=== PATIENT | male | born 1950 | race Caucasian/White ===

== ENCOUNTER 2018-11-15 07:23 | Observation (INO) ==
[2018-11-15] MEDS ORDERED: *HR* Morphine 2 MG/ML SYRINGE IVP ONE ×4 (07:43→18:02)
[2018-11-15] MEDS ORDERED: 0.9 % Sodium Chloride 1,000 ML IVC ONE ×2 (07:43→16:26)
[2018-11-15] MEDS ORDERED: Ondansetron 4 MG/2 ML VIAL IVP ONE ×2 (07:43→09:10)
[2018-11-15 08:04] LABS: Basophils # 0.1 K/mcL (0.0-0.2); Basophils % 0.3 %; Eosinophils % 0.2 %; Hemoglobin 18.9 g/dL (12.9-16.9); Immature Granulocytes % 0.5 % (0-4); Lymphocytes # 0.9 K/mcL (0.6-4.6); Lymphocytes % 5.8 %; Mean Corpuscular HGB Conc 33.4 g/dL (31.6-35.5); Mean Corpuscular Hemoglobin 32.1 pg (28.0-33.3); Mean Corpuscular Volume 96.3 fL (83.0-100.0); Monocytes # 1.2 K/mcL (0.0-1.3); Monocytes % 8.3 %; Neutrophils # 12.7 K/mcL (1.6-8.9); Platelet Count 317 K/mcL (140-400); Red Blood Count 5.88 M/mcL (4.19-5.50); Segmented Neutrophils % 84.9 %; White Blood Count 14.9 K/mcL (4.3-11.1)
--- NOTE | 2018-11-15 08:08 | Emergency Department Note ---
Disposition Clinical Impression: Ileus Abdominal pain Qualifiers: Abdominal location: right upper quadrant Qualified Code(s): R10.11 - Right upper quadrant pain Disposition: Still a Patient Condition: Fair Referrals: Tomas Kumar DO [Primary Care Provider] - Forms: ED Satisfaction Letter, Work/School Release Time of Disposition: 16:45 General Adult HPI - General Chief complaint: ED Abdominal Pain Stated complaint: ABD Pain,Vomiting Blood Time Seen by Provider: 11/15/18 07:29 Source: patient Limitations: no limitations Nursing Notes Reviewed: Yes Vital Signs Reviewed: Yes - History of Present Illness Pain Scale: 3 - Related Data Home Medications Medication Instructions Recorded Confirmed Carvedilol 3.125 mg PO BID 04/15/17 11/15/18 Lisinopril [Zestril] 20 mg PO QPM 04/15/17 11/15/18 Pantoprazole Sodium 40 mg PO QPM 04/15/17 11/15/18 Simvastatin [Zocor] 40 mg PO HS 04/15/17 11/15/18 Aspirin [Lo-Dose Aspirin EC] 81 mg PO DAILY 05/01/17 11/15/18 Sildenafil Citrate [Revatio] 60 - 100 mg PO DAILY PRN 05/17/17 11/15/18 Ascorbate Calcium [Vitamin C] 500 mg PO DAILY 11/06/18 11/15/18 Cholecalciferol (Vitamin D3) 5,000 units PO DAILY 11/06/18 11/15/18 [Dialyvite Vitamin D] Ferrous Sulfate [High Potency Iron] 27 mg PO QPM 11/06/18 11/15/18 Allergies Allergy/AdvReac Type Severity Reaction Status Date / Time Penicillins [PCN] AdvReac See Verified 11/15/18 07:28 Comments Past Medical History - Past Medical History Medical history: Reports: cancer, COPD, GERD, hyperlipidemia, hypertension, kidney stones, myocardial infarction, other Surgical history: Reports: herniorrhaphy Psychiatric history: Reports: no psych history - Social History Smoking Status: Current every day smoker Smokeless Tobacco Status: No Alcohol use: Reports: none Drug use: Reports: none Physical Exam - General Limitations: no limitations General appearance: alert, in no apparent distress Course Vital Signs Temperature 97.5 F L 11/15/18 07:27 Pulse Rate 113 11/15/18 07:27 Respiratory Rate 18 11/15/18 07:27 Blood Pressure 149/100 11/15/18 07:27 O2 Sat by Pulse Oximetry 93 11/15/18 07:27 Temperature 97.5 F L 11/15/18 07:45 Pulse Rate 92 11/15/18 14:56 Respiratory Rate 16 11/15/18 14:56 Blood Pressure 120/95 11/15/18 14:56 O2 Sat by Pulse Oximetry 95 11/15/18 14:56 Oxygen Delivery Oxygen Delivery Nasal Cannula Medical Decision Making - MDM Narrative Medical decision making narrative: Abdomen/Pelvis CT 11/15/18 07:45 IMPRESSION: Moderate abdominal and pelvic ascites in this patient with recent cholecystectomy. Small amount of fluid at the gallbladder fossa as well. The findings could be reactive, related to fluid overload, or bile leak. Nuclear medicine bile leak study may be helpful for further assessment. Gaseous distention of colon, likely postoperative ileus. Prostatomegaly. Correlate with urologic history. Atherosclerosis, including coronary artery calcification. No significant interval change in right basilar pulmonary nodules as compared to prior. D/ / Thanh Ram MD / Thanh Ram MD Interpreting Provider: Thanh Ram MD [id number]: Patient labs are back with leukocytosis and elevated bilirubin. He has had pain and nausea medication CT is back. Were going to speak with surgery. For evaluation. 0910 hours: Patient's discussed with surgery Dr. Sosa coming to see him. Patient says pain is coming back prescription ordered another dose of pain medications and nausea medications. 1038 hrs.: Dr. Sosa seen the patient in the ER, he is going to see if I are can place a pigtail and drain this fluid collection out which she presumes may be blood. Patient's in agreement with this plan. 1600 hrs.: Patient got back from IR, they thought the fluid looked bilious we sent it down to lab. Patient still having pain. We will talk to Dr. Marks and he is in a come down and reevaluate the patient. Determine best disposition for him. I am signing this patient out to Dr. Teo Prealta and Shelby Major for further management disposition. - Lab Data Result diagrams: 11/15/18 07:43 11/15/18 07:43 Lab Results 11/15/18 11/15/18 11/15/18 Range/Units 07:43 07:43 07:46 WBC 14.9 H (4.3-11.1) K/mcL RBC 5.88 H (4.19-5.50) M/mcL Hgb 18.9 H (12.9-16.9) g/dL Hct 56.6 H (37.5-50.1) % MCV 96.3 (83.0-100.0) fL MCH 32.1 (28.0-33.3) pg MCHC 33.4 (31.6-35.5) g/dL RDW 14.0 (11.5-14.5) % Plt Count 317 (140-400) K/mcL MPV 10.0 (9.4-12.4) fL Immature Gran % 0.5 (0-4) % Seg Neutrophils % 84.9 % Lymphocytes % 5.8 % Monocytes % 8.3 % Eosinophils % 0.2 % Basophils % 0.3 % Neutrophils # 12.7 H (1.6-8.9) K/mcL Lymphocytes # 0.9 (0.6-4.6) K/mcL Monocytes # 1.2 (0.0-1.3) K/mcL Eosinophils # 0.0 (0.0-0.6) K/mcL Basophils # 0.1 (0.0-0.2) K/mcL PT (9.4-12.1) Seconds INR APTT (26.0-36.0) Seconds Sodium 137 (136-145) mEq/L Potassium 4.5 (3.5-5.1) mEq/L Chloride 97 L (98-107) mEq/L Carbon Dioxide 29 (23-29) mEq/L BUN 16 (8-23) mg/dL Creatinine 1.17 (0.70-1.30) mg/dL Est GFR ( Amer) > 60 (> 60) Est GFR (Non-Af Amer) > 60 (> 60) BUN/Creatinine Ratio 14 (6-26) Glucose 171 H (70-105) mg/dL Calculated Osmolality 289 (280-300) Lactic Acid 2.1 (0.5-2.2) mmol/L Calcium 12.7 H (8.6-10.3) mg/dL Venous Ioniz Calcium (1.15-1.35) mmol/L Total Bilirubin 1.7 H (0.3-1.0) mg/dL Direct Bilirubin 0.5 H (0.0-0.2) mg/dL Indirect Bilirubin 1.2 (0.0-1.2) mg/dL AST 27 (13-39) Units/L ALT 52 (7-52) Units/L Alkaline Phosphatase 71 (34-104) Units/L Troponin I < 0.03 (< 0.04) ng/mL B-Natriuretic Peptide (Less than 100) pg/mL Serum Total Protein 8.1 (6.4-8.9) g/dL Albumin 4.4 (3.5-5.7) g/dL Globulin 3.7 H (2.4-3.5) g/dL Albumin/Globulin Ratio 1.2 (1.1-2.2) Lipase < 3 L (11-82) Units/L Specimen Rejected Blood Type Antibody Screen 11/15/18 11/15/18 11/15/18 Range/Units 07:46 07:46 07:46 WBC (4.3-11.1) K/mcL RBC (4.19-5.50) M/mcL Hgb (12.9-16.9) g/dL Hct (37.5-50.1) % MCV (83.0-100.0) fL MCH (28.0-33.3) pg MCHC (31.6-35.5) g/dL RDW (11.5-14.5) % Plt Count (140-400) K/mcL MPV (9.4-12.4) fL Immature Gran % (0-4) % Seg Neutrophils % % Lymphocytes % % Monocytes % % Eosinophils % % Basophils % % Neutrophils # (1.6-8.9) K/mcL Lymphocytes # (0.6-4.6) K/mcL Monocytes # (0.0-1.3) K/mcL Eosinophils # (0.0-0.6) K/mcL Basophils # (0.0-0.2) K/mcL PT (9.4-12.1) Seconds INR APTT (26.0-36.0) Seconds Sodium (136-145) mEq/L Potassium (3.5-5.1) mEq/L Chloride (98-107) mEq/L Carbon Dioxide (23-29) mEq/L BUN (8-23) mg/dL Creatinine (0.70-1.30) mg/dL Est GFR ( Amer) (> 60) Est GFR (Non-Af Amer) (> 60) BUN/Creatinine Ratio (6-26) Glucose (70-105) mg/dL Calculated Osmolality (280-300) Lactic Acid (0.5-2.2) mmol/L Calcium (8.6-10.3) mg/dL Venous Ioniz Calcium (1.15-1.35) mmol/L Total Bilirubin (0.3-1.0) mg/dL Direct Bilirubin (0.0-0.2) mg/dL Indirect Bilirubin (0.0-1.2) mg/dL AST (13-39) Units/L ALT (7-52) Units/L Alkaline Phosphatase (34-104) Units/L Troponin I (< 0.04) ng/mL B-Natriuretic Peptide 242 H (Less than 100) pg/mL Serum Total Protein (6.4-8.9) g/dL Albumin (3.5-5.7) g/dL Globulin (2.4-3.5) g/dL Albumin/Globulin Ratio (1.1-2.2) Lipase (11-82) Units/L Specimen Rejected Miscellaneous Blood Type A POSITIVE Antibody Screen NEGATIVE 11/15/18 11/15/18 11/15/18 Range/Units 08:51 11:42 12:25 WBC (4.3-11.1) K/mcL RBC (4.19-5.50) M/mcL Hgb (12.9-16.9) g/dL Hct (37.5-50.1) % MCV (83.0-100.0) fL MCH (28.0-33.3) pg MCHC (31.6-35.5) g/dL RDW (11.5-14.5) % Plt Count (140-400) K/mcL MPV (9.4-12.4) fL Immature Gran % (0-4) % Seg Neutrophils % % Lymphocytes % % Monocytes % % Eosinophils % % Basophils % % Neutrophils # (1.6-8.9) K/mcL Lymphocytes # (0.6-4.6) K/mcL Monocytes # (0.0-1.3) K/mcL Eosinophils # (0.0-0.6) K/mcL Basophils # (0.0-0.2) K/mcL PT 12.2 H (9.4-12.1) Seconds INR 1.1 APTT 31.2 (26.0-36.0) Seconds Sodium (136-145) mEq/L Potassium (3.5-5.1) mEq/L Chloride (98-107) mEq/L Carbon Dioxide (23-29) mEq/L BUN (8-23) mg/dL Creatinine (0.70-1.30) mg/dL Est GFR ( Amer) (> 60) Est GFR (Non-Af Amer) (> 60) BUN/Creatinine Ratio (6-26) Glucose (70-105) mg/dL Calculated Osmolality (280-300) Lactic Acid 1.0 (0.5-2.2) mmol/L Calcium (8.6-10.3) mg/dL Venous Ioniz Calcium 1.30 (1.15-1.35) mmol/L Total Bilirubin (0.3-1.0) mg/dL Direct Bilirubin (0.0-0.2) mg/dL Indirect Bilirubin (0.0-1.2) mg/dL AST (13-39) Units/L ALT (7-52) Units/L Alkaline Phosphatase (34-104) Units/L Troponin I (< 0.04) ng/mL B-Natriuretic Peptide (Less than 100) pg/mL Serum Total Protein (6.4-8.9) g/dL Albumin (3.5-5.7) g/dL Globulin (2.4-3.5) g/dL Albumin/Globulin Ratio (1.1-2.2) Lipase (11-82) Units/L Specimen Rejected Blood Type Antibody Screen Attestation Statement - Attestation Attestation: This documentation is done with the assistance of [employer] dictation. Despite efforts made to ensure accuracy, there may be inaccuracies in drywall worker or spelling and typographical errors. I have personally performed a face to face evaluation on this patient. I have reviewed and agree with the care plan. History and Exam by me shows: Patient was seen and evaluated by Shelby Major myself, I agree with her evaluation management plan, patient had surgery laparoscopic cholecystectomy done on the november here. Been having epigastric and right upper quadrant pain no back pain. He sits worse when he coughs or moves. He has been taken ibuprofen at home. He said he does not like to take narcotic pain medicines. He is on been coughing up some blood. He said this morning he vomited he thinks it was blood but he said he is a little nauseous now but no vomiting. We will treat his pain check some labwork CT his abdomen and then reassess. He is in agreement with plan. We will consult with surgery also. I reviewed the residents documentation and agree with the residents assessment and plan of care. I have personally had face to face time with the patient. (Brief History, Brief Exam, and MDM) I personally supervised and was present for the fallon/critical portions of the following procedures completed by the resident: EKG was reviewed and interpreted by Shelby Major under my supervision, I agree with her interpretation.
[2018-11-15 08:09] LABS: Hematocrit 56.6 % (37.5-50.1)
[2018-11-15 08:26] LABS: Alanine Aminotransferase 52 Units/L (7-52); Albumin 4.4 g/dL (3.5-5.7); Albumin/Globulin Ratio 1.2 (1.1-2.2); Alkaline Phosphatase 71 Units/L (34-104); Aspartate Amino Transferase 27 Units/L (13-39); BUN/Creatinine Ratio 14 (6-26); Bilirubin,Direct 0.5 mg/dL (0.0-0.2); Bilirubin,Indirect 1.2 mg/dL (0.0-1.2); Bilirubin,Total 1.7 mg/dL (0.3-1.0); Blood Urea Nitrogen 16 mg/dL (8-23); Calcium 12.7 mg/dL (8.6-10.3); Carbon Dioxide 29 mEq/L (23-29); Chloride 97 mEq/L (98-107); Globulin 3.7 g/dL (2.4-3.5); Glucose 171 mg/dL (70-105); Lipase < 3 Units/L (11-82); Osmolality,Calculated 289 (280-300); Potassium 4.5 mEq/L (3.5-5.1); Sodium 137 mEq/L (136-145); Total Protein 8.1 g/dL (6.4-8.9); Troponin I < 0.03 ng/mL (< 0.04); eGFR For African Americans > 60 (> 60); eGFR For Non-African Americans > 60 (> 60)
--- NOTE | 2018-11-15 08:45 | Emergency Department Note ---
Disposition Clinical Impression: Ileus Abdominal pain Qualifiers: Abdominal location: right upper quadrant Qualified Code(s): R10.11 - Right upper quadrant pain Disposition: Still a Patient Condition: Fair Referrals: Tomas Kumar DO [Primary Care Provider] - Forms: ED Satisfaction Letter, Work/School Release Time of Disposition: 18:10 Abdominal Pain HPI - General Chief Complaint: ED Abdominal Pain Stated Complaint: ABD Pain,Vomiting Blood Time Seen by Provider: 11/15/18 07:29 Source: patient Mode of arrival: private vehicle Limitations: no limitations Nursing Notes Reviewed: Yes Vital Signs Reviewed: Yes - History of Present Illness HPI Narrative: Patient presents from home for evaluation of epigastric abdominal pain with nausea and vomiting. He had one episode of hematemesis this morning. He also describes anorexia, constipation 3 days and diaphoresis. He is nine days status post laparoscopic cholecystectomy. The pain is worse with certain movements, vomiting, and trying to eat. He has not had any food for 36 hours. He tried to drink a soda yesterday, but states that it took them all day to drink one can. He denies fever or chills, chest pain, shortness of breath or hemoptysis. He also denies flank pain, dysuria, hematuria. He has been taking ibuprofen for his postoperative pain. Pt Subjective Complaint: abdominal pain, other (hematemesis) Onset (ago): day(s) Consistency: constant Location: epigastric Pain Severity: moderate Pain Scale: 3 Quality: stabbing, sharp Radiation: RUQ Improves with: nothing Worsens with: movement Context: recent surgery/procedure (Lap Chen 11/06/18) Associated symptoms: Reports: nausea, vomiting (One episode of hematemesis. Just prior to arrival. Patient describes it as small amount of clear fluid and some bright red blood. No blood clots.), constipation (No bowel movement 3 days. Has had two-three normal bowel movements since surgery though.), hematemesis, anorexia (Last oral intake was Sunday evening for cellulitis and yesterday evening for liquids.). Denies: diarrhea, fever, chills, dysuria, hematochezia, melena, hematuria Treatments prior to arrival: NSAIDs (Patient states that he took four ibuprofen yesterday evening and has been taking ibuprofen since surgery as he does not like to take narcotics. ) - Related Data Home Medications Medication Instructions Recorded Confirmed Carvedilol 3.125 mg PO BID 04/15/17 11/15/18 Lisinopril [Zestril] 20 mg PO QPM 04/15/17 11/15/18 Pantoprazole Sodium 40 mg PO QPM 04/15/17 11/15/18 Simvastatin [Zocor] 40 mg PO HS 04/15/17 11/15/18 Aspirin [Lo-Dose Aspirin EC] 81 mg PO DAILY 05/01/17 11/15/18 Sildenafil Citrate [Revatio] 60 - 100 mg PO DAILY PRN 05/17/17 11/15/18 Ascorbate Calcium [Vitamin C] 500 mg PO DAILY 11/06/18 11/15/18 Cholecalciferol (Vitamin D3) 5,000 units PO DAILY 11/06/18 11/15/18 [Dialyvite Vitamin D] Ferrous Sulfate [High Potency Iron] 27 mg PO QPM 11/06/18 11/15/18 Allergies Allergy/AdvReac Type Severity Reaction Status Date / Time Penicillins [PCN] AdvReac See Verified 11/15/18 07:28 Comments Abdominal Pain PMH - Past Medical History Medical history: Reports: cancer, COPD, GERD, hyperlipidemia, hypertension, kidney stones, myocardial infarction, other Male Surgical History: Reports: cholecystectomy, colectomy, herniorrhaphy, other Psychiatric history: Reports: no psych history - Social History Smoking status: Current every day smoker Alcohol use: Reports: none Drug use: Reports: none Physical Exam - General Limitations: no limitations General appearance: alert, in no apparent distress, other (appears in pain) - Head Head exam: atraumatic, normocephalic, normal inspection - Eye Eye exam: Present: normal appearance. Absent: scleral icterus, conjunctival injection - ENT ENT exam: mucous membranes dry - Neck Neck exam: Present: normal inspection, full ROM, trachea midline. Absent: meningismus - Expanded Neck Exam Neck exam focused ED: Absent: JVD - Chest Chest inspection: Present: symmetric chest wall rise, other (Well-healing surgical wound, left upper chest wall from recent removal of port. ("Dart Board" per patient)). Absent: tenderness - Respiratory Respiratory exam: Present: normal lung sounds bilaterally. Absent: respiratory distress, wheezes, stridor - Cardiovascular Cardiovascular exam: Present: regular rate (98-113), tachycardia (98-113), irregular rhythm. Absent: systolic murmur, diastolic murmur - Abdominal Exam Abdominal exam: Present: soft, tenderness, hypoactive bowel sounds, incision (Well healing surgical wounds lower abdomen and right lateral), scar. Absent: distention, guarding, rebound, rigidity, tenderness at McBurney's Point, ascites, mass, pulsatile mass Abdominal tenderness: Present: RUQ, epigastrium, moderate - Extremities Exam Extremities exam: Present: normal inspection, full ROM, normal capillary refill. Absent: pedal edema, calf tenderness - Back Exam Back exam: Present: normal inspection. Absent: tenderness, CVA tenderness (R), CVA tenderness (L) - Neurological Exam Neurological exam: Present: alert, oriented X3, CN II-XII intact, normal gait - Psychiatric Psychiatric exam: Present: normal affect, normal mood - Skin Skin exam: Present: warm, dry, intact, normal color Course Course Narrative: Patient brought back to room 23. He appears to be in pain, but non-toxic. He is able to provide a thorough history. Abdomen is tender but no signs of peritonitis. Lungs are clear. Heart rate is 90's-110. Rhythm is irregular but sinus. (Patient states that he has a hx of sinus arrythmia x decades. He also has had stomach and esophageal cancer, s/p partial resection of both 6 years ago in [place]. In remission.) He describes one episode of hematemesis today - just [employer]. He has had no vomiting during his stay. Pain was moderate and responded to Morphine. Labs, EKG, CT and fluids ordered. - Reevaluation(s) Reevaluation #1: Patient is feeling worse. The pain medicine helped transiently. However, when he came back from CAT scan, the pain returned. He states that he did get up and transfer onto the CAT scan table and then back onto the cot after the scan. He believes this is what made his pain worse. Additional meds have been ordered. Heart rate is between 98 and 113. Blood pressure is higher than when he arrived. Dr. Solitario updated. Time: 09:12 Reevaluation #2: Pain is much better after meds. No nausea or vomiting. Heart rate still 1-teens though. Sats decrease to 88 on room air when he is sleeping. Added O2 at 1.5 liters via nasal cannula. Time: 10:06 Reevaluation #3: Pain has returned. Discussed this with Dr. Solitario. He tapan's giving patient another 8mg of Morphine. Vitals being re-checked now. Patient is waiting to go to IR dept for aspiration per Dr. Marks. Time: 11:37 Additional Reevaluation(s): Time is 16:[address]-guided fluid aspiration from the right upper quadrant done by IR physician, Dr. Prince. I was able to watch the procedure. When the abdomen was punctured. There was evacuation of approximately 20 mL of yellow fluid onto the drape. When the introducer was inserted there was another gush of yellow fluid. Additional fluid was aspirated and has been sent for lab. Dr. Prince placed to drain and states that it should remain in. He recommends contacting the surgeon for specific lab orders on the abdominal fluid. Dr. Marks has been paged. Patient c/o increased pain. Meds ordered. PEREZ drain emptyied and is 3/4 full now. - Consultations Consultation #1: Case discussed with Dr. Marks. He will come to the ED to see the patient. Time: 08:52 Consultation #2: Pt examined by Dr. Marks. He does not think patient has a bile leak. He will talk with IR about doing an aspiration to determine the type of fluid, then discuss disposition. Time: 10:45 Consultation #3: Dr. Marks has been paged for consult re: disposition. Patient will most likely need to be admitted for further evaluation of the fluid as well as treatment of the pain and ileus. Time: 15:45 Vital Signs Temperature 97.5 F L 11/15/18 07:27 Pulse Rate 113 11/15/18 07:27 Respiratory Rate 18 11/15/18 07:27 Blood Pressure 149/100 11/15/18 07:27 O2 Sat by Pulse Oximetry 93 11/15/18 07:27 Temperature 97.5 F L 11/15/18 07:45 Pulse Rate 82 11/15/18 18:39 Respiratory Rate 18 11/15/18 18:39 Blood Pressure 144/93 11/15/18 18:39 O2 Sat by Pulse Oximetry 97 11/15/18 18:39 Oxygen Delivery Oxygen Delivery Room Air Abdominal Pain - MDM Narrative Medical decision making narrative: Patient's abdominal pain, N/V & leukocytosis most likely second to acute abdominal process. He does have an occasional cough and hilar but this most- likely represents atelectasis per radiologist. - Medical Records Medical records reviewed: Yes I reviewed the patient's medical records. - Lab Data Lab results reviewed: Yes I reviewed the patient's lab results. Lab results narrative: Laboratory Last Values WBC 14.9 K/mcL (4.3-11.1) H 11/15/18 07:43 RBC 5.88 M/mcL (4.19-5.50) H 11/15/18 07:43 Hgb 18.9 g/dL (12.9-16.9) H 11/15/18 07:43 Hct 56.6 % (37.5-50.1) H 11/15/18 07:43 MCV 96.3 fL (83.0-100.0) 11/15/18 07:43 MCH 32.1 pg (28.0-33.3) 11/15/18 07:43 MCHC 33.4 g/dL (31.6-35.5) 11/15/18 07:43 RDW 14.0 % (11.5-14.5) 11/15/18 07:43 Plt Count 317 K/mcL (140-400) 11/15/18 07:43 MPV 10.0 fL (9.4-12.4) 11/15/18 07:43 Immature Gran % 0.5 % (0-4) 11/15/18 07:43 Seg Neutrophils % 84.9 % 11/15/18 07:43 5.8 % 11/15/18 07:43 8.3 % 11/15/18 07:43 0.2 % 11/15/18 07:43 0.3 % 11/15/18 07:43 12.7 K/mcL (1.6-8.9) H 11/15/18 07:43 0.9 K/mcL (0.6-4.6) 11/15/18 07:43 1.2 K/mcL (0.0-1.3) 11/15/18 07:43 0.0 K/mcL (0.0-0.6) 11/15/18 07:43 0.1 K/mcL (0.0-0.2) 11/15/18 07:43 PT 12.2 Seconds (9.4-12.1) H 11/15/18 08:51 INR 1.1 11/15/18 08:51 APTT 31.2 Seconds (26.0-36.0) 11/15/18 08:51 Sodium 137 mEq/L (136-145) 11/15/18 07:43 Potassium 4.5 mEq/L (3.5-5.1) 11/15/18 07:43 Chloride 97 mEq/L (98-107) L 11/15/18 07:43 Carbon Dioxide 29 mEq/L (23-29) 11/15/18 07:43 BUN 16 mg/dL (8-23) 11/15/18 07:43 1.17 mg/dL (0.70-1.30) 11/15/18 07:43 Est GFR ( Amer) > 60 (> 60) 11/15/18 07:43 Est GFR (Non-Af Amer) > 60 (> 60) 11/15/18 07:43 14 (6-26) 11/15/18 07:43 Glucose 171 mg/dL (70-105) H 11/15/18 07:43 289 (280-300) 11/15/18 07:43 Lactic Acid 1.0 mmol/L (0.5-2.2) 11/15/18 11:42 Calcium 12.7 mg/dL (8.6-10.3) H 11/15/18 07:43 1.7 mg/dL (0.3-1.0) H 11/15/18 07:43 0.5 mg/dL (0.0-0.2) H 11/15/18 07:43 1.2 mg/dL (0.0-1.2) 11/15/18 07:43 AST 27 Units/L (13-39) 11/15/18 07:43 ALT 52 Units/L (7-52) 11/15/18 07:43 71 Units/L (34-104) 11/15/18 07:43 < 0.03 ng/mL (< 0.04) 11/15/18 07:43 B-Natriuretic Peptide 242 pg/mL (Less than 100) H 11/15/18 07:46 8.1 g/dL (6.4-8.9) 11/15/18 07:43 4.4 g/dL (3.5-5.7) 11/15/18 07:43 3.7 g/dL (2.4-3.5) H 11/15/18 07:43 1.2 (1.1-2.2) 11/15/18 07:43 < 3 Units/L (11-82) L 11/15/18 07:43 Miscellaneous 11/15/18 07:46 Blood Type A POSITIVE 11/15/18 07:46 Antibody Screen NEGATIVE 11/15/18 07:46 Result diagrams: 11/15/18 07:43 11/15/18 07:43 Lab Results 11/15/18 11/15/18 11/15/18 Range/Units 07:43 07:43 07:46 WBC 14.9 H (4.3-11.1) K/mcL RBC 5.88 H (4.19-5.50) M/mcL Hgb 18.9 H (12.9-16.9) g/dL Hct 56.6 H (37.5-50.1) % MCV 96.3 (83.0-100.0) fL MCH 32.1 (28.0-33.3) pg MCHC 33.4 (31.6-35.5) g/dL RDW 14.0 (11.5-14.5) % Plt Count 317 (140-400) K/mcL MPV 10.0 (9.4-12.4) fL Immature Gran % 0.5 (0-4) % Seg Neutrophils % 84.9 % Lymphocytes % 5.8 % Monocytes % 8.3 % Eosinophils % 0.2 % Basophils % 0.3 % Neutrophils # 12.7 H (1.6-8.9) K/mcL Lymphocytes # 0.9 (0.6-4.6) K/mcL Monocytes # 1.2 (0.0-1.3) K/mcL Eosinophils # 0.0 (0.0-0.6) K/mcL Basophils # 0.1 (0.0-0.2) K/mcL PT (9.4-12.1) Seconds INR APTT (26.0-36.0) Seconds Sodium 137 (136-145) mEq/L Potassium 4.5 (3.5-5.1) mEq/L Chloride 97 L (98-107) mEq/L Carbon Dioxide 29 (23-29) mEq/L BUN 16 (8-23) mg/dL Creatinine 1.17 (0.70-1.30) mg/dL Est GFR ( Amer) > 60 (> 60) Est GFR (Non-Af Amer) > 60 (> 60) BUN/Creatinine Ratio 14 (6-26) Glucose 171 H (70-105) mg/dL Calculated Osmolality 289 (280-300) Lactic Acid 2.1 (0.5-2.2) mmol/L Calcium 12.7 H (8.6-10.3) mg/dL Venous Ioniz Calcium (1.15-1.35) mmol/L Total Bilirubin 1.7 H (0.3-1.0) mg/dL Direct Bilirubin 0.5 H (0.0-0.2) mg/dL Indirect Bilirubin 1.2 (0.0-1.2) mg/dL AST 27 (13-39) Units/L ALT 52 (7-52) Units/L Alkaline Phosphatase 71 (34-104) Units/L Troponin I < 0.03 (< 0.04) ng/mL B-Natriuretic Peptide (Less than 100) pg/mL Serum Total Protein 8.1 (6.4-8.9) g/dL Albumin 4.4 (3.5-5.7) g/dL Globulin 3.7 H (2.4-3.5) g/dL Albumin/Globulin Ratio 1.2 (1.1-2.2) Lipase < 3 L (11-82) Units/L Urine Color (Yellow) Urine Clarity (Clear) Urine pH (5.0-8.0) pH Units Ur Specific Merrick (1.010-1.025) Urine Protein (Neg-Trace) mg/dL Urine Glucose (UA) (Normal) mg/dL Urine Ketones (Negative) mg/dL Urine Blood (Negative) Urine Nitrite (Negative) Urine Bilirubin (Negative) Urine Urobilinogen (Normal) mg/dL Ur Leukocyte Esterase (Negative) Urine Microscopic RBC (0-3) per hpf Urine Microscopic WBC (0-3) per hpf Ur Squamous Epith Cells (None-Few) per lpf Urine Bacteria (None-Few) per hpf Ur Culture Indicated? (NO) Specimen Rejected Blood Type Antibody Screen 11/15/18 11/15/18 11/15/18 Range/Units 07:46 07:46 07:46 WBC (4.3-11.1) K/mcL RBC (4.19-5.50) M/mcL Hgb (12.9-16.9) g/dL Hct (37.5-50.1) % MCV (83.0-100.0) fL MCH (28.0-33.3) pg MCHC (31.6-35.5) g/dL RDW (11.5-14.5) % Plt Count (140-400) K/mcL MPV (9.4-12.4) fL Immature Gran % (0-4) % Seg Neutrophils % % Lymphocytes % % Monocytes % % Eosinophils % % Basophils % % Neutrophils # (1.6-8.9) K/mcL Lymphocytes # (0.6-4.6) K/mcL Monocytes # (0.0-1.3) K/mcL Eosinophils # (0.0-0.6) K/mcL Basophils # (0.0-0.2) K/mcL PT (9.4-12.1) Seconds INR APTT (26.0-36.0) Seconds Sodium (136-145) mEq/L Potassium (3.5-5.1) mEq/L Chloride (98-107) mEq/L Carbon Dioxide (23-29) mEq/L BUN (8-23) mg/dL Creatinine (0.70-1.30) mg/dL Est GFR ( Amer) (> 60) Est GFR (Non-Af Amer) (> 60) BUN/Creatinine Ratio (6-26) Glucose (70-105) mg/dL Calculated Osmolality (280-300) Lactic Acid (0.5-2.2) mmol/L Calcium (8.6-10.3) mg/dL Venous Ioniz Calcium (1.15-1.35) mmol/L Total Bilirubin (0.3-1.0) mg/dL Direct Bilirubin (0.0-0.2) mg/dL Indirect Bilirubin (0.0-1.2) mg/dL AST (13-39) Units/L ALT (7-52) Units/L Alkaline Phosphatase (34-104) Units/L Troponin I (< 0.04) ng/mL B-Natriuretic Peptide 242 H (Less than 100) pg/mL Serum Total Protein (6.4-8.9) g/dL Albumin (3.5-5.7) g/dL Globulin (2.4-3.5) g/dL Albumin/Globulin Ratio (1.1-2.2) Lipase (11-82) Units/L Urine Color (Yellow) Urine Clarity (Clear) Urine pH (5.0-8.0) pH Units Ur Specific Merrick (1.010-1.025) Urine Protein (Neg-Trace) mg/dL Urine Glucose (UA) (Normal) mg/dL Urine Ketones (Negative) mg/dL Urine Blood (Negative) Urine Nitrite (Negative) Urine Bilirubin (Negative) Urine Urobilinogen (Normal) mg/dL Ur Leukocyte Esterase (Negative) Urine Microscopic RBC (0-3) per hpf Urine Microscopic WBC (0-3) per hpf Ur Squamous Epith Cells (None-Few) per lpf Urine Bacteria (None-Few) per hpf Ur Culture Indicated? (NO) Specimen Rejected Miscellaneous Blood Type A POSITIVE Antibody Screen NEGATIVE 11/15/18 11/15/18 11/15/18 Range/Units 08:51 11:42 12:25 WBC (4.3-11.1) K/mcL RBC (4.19-5.50) M/mcL Hgb (12.9-16.9) g/dL Hct (37.5-50.1) % MCV (83.0-100.0) fL MCH (28.0-33.3) pg MCHC (31.6-35.5) g/dL RDW (11.5-14.5) % Plt Count (140-400) K/mcL MPV (9.4-12.4) fL Immature Gran % (0-4) % Seg Neutrophils % % Lymphocytes % % Monocytes % % Eosinophils % % Basophils % % Neutrophils # (1.6-8.9) K/mcL Lymphocytes # (0.6-4.6) K/mcL Monocytes # (0.0-1.3) K/mcL Eosinophils # (0.0-0.6) K/mcL Basophils # (0.0-0.2) K/mcL PT 12.2 H (9.4-12.1) Seconds INR 1.1 APTT 31.2 (26.0-36.0) Seconds Sodium (136-145) mEq/L Potassium (3.5-5.1) mEq/L Chloride (98-107) mEq/L Carbon Dioxide (23-29) mEq/L BUN (8-23) mg/dL Creatinine (0.70-1.30) mg/dL Est GFR ( Amer) (> 60) Est GFR (Non-Af Amer) (> 60) BUN/Creatinine Ratio (6-26) Glucose (70-105) mg/dL Calculated Osmolality (280-300) Lactic Acid 1.0 (0.5-2.2) mmol/L Calcium (8.6-10.3) mg/dL Venous Ioniz Calcium 1.30 (1.15-1.35) mmol/L Total Bilirubin (0.3-1.0) mg/dL Direct Bilirubin (0.0-0.2) mg/dL Indirect Bilirubin (0.0-1.2) mg/dL AST (13-39) Units/L ALT (7-52) Units/L Alkaline Phosphatase (34-104) Units/L Troponin I (< 0.04) ng/mL B-Natriuretic Peptide (Less than 100) pg/mL Serum Total Protein (6.4-8.9) g/dL Albumin (3.5-5.7) g/dL Globulin (2.4-3.5) g/dL Albumin/Globulin Ratio (1.1-2.2) Lipase (11-82) Units/L Urine Color (Yellow) Urine Clarity (Clear) Urine pH (5.0-8.0) pH Units Ur Specific Merrick (1.010-1.025) Urine Protein (Neg-Trace) mg/dL Urine Glucose (UA) (Normal) mg/dL Urine Ketones (Negative) mg/dL Urine Blood (Negative) Urine Nitrite (Negative) Urine Bilirubin (Negative) Urine Urobilinogen (Normal) mg/dL Ur Leukocyte Esterase (Negative) Urine Microscopic RBC (0-3) per hpf Urine Microscopic WBC (0-3) per hpf Ur Squamous Epith Cells (None-Few) per lpf Urine Bacteria (None-Few) per hpf Ur Culture Indicated? (NO) Specimen Rejected Blood Type Antibody Screen 11/15/18 Range/Units 17:45 WBC (4.3-11.1) K/mcL RBC (4.19-5.50) M/mcL Hgb (12.9-16.9) g/dL Hct (37.5-50.1) % MCV (83.0-100.0) fL MCH (28.0-33.3) pg MCHC (31.6-35.5) g/dL RDW (11.5-14.5) % Plt Count (140-400) K/mcL MPV (9.4-12.4) fL Immature Gran % (0-4) % Seg Neutrophils % % Lymphocytes % % Monocytes % % Eosinophils % % Basophils % % Neutrophils # (1.6-8.9) K/mcL Lymphocytes # (0.6-4.6) K/mcL Monocytes # (0.0-1.3) K/mcL Eosinophils # (0.0-0.6) K/mcL Basophils # (0.0-0.2) K/mcL PT (9.4-12.1) Seconds INR APTT (26.0-36.0) Seconds Sodium (136-145) mEq/L Potassium (3.5-5.1) mEq/L Chloride (98-107) mEq/L Carbon Dioxide (23-29) mEq/L BUN (8-23) mg/dL Creatinine (0.70-1.30) mg/dL Est GFR ( Amer) (> 60) Est GFR (Non-Af Amer) (> 60) BUN/Creatinine Ratio (6-26) Glucose (70-105) mg/dL Calculated Osmolality (280-300) Lactic Acid (0.5-2.2) mmol/L Calcium (8.6-10.3) mg/dL Venous Ioniz Calcium (1.15-1.35) mmol/L Total Bilirubin (0.3-1.0) mg/dL Direct Bilirubin (0.0-0.2) mg/dL Indirect Bilirubin (0.0-1.2) mg/dL AST (13-39) Units/L ALT (7-52) Units/L Alkaline Phosphatase (34-104) Units/L Troponin I (< 0.04) ng/mL B-Natriuretic Peptide (Less than 100) pg/mL Serum Total Protein (6.4-8.9) g/dL Albumin (3.5-5.7) g/dL Globulin (2.4-3.5) g/dL Albumin/Globulin Ratio (1.1-2.2) Lipase (11-82) Units/L Urine Color Dark Yellow (Yellow) Urine Clarity Hazy (Clear) Urine pH 6.0 (5.0-8.0) pH Units Ur Specific Merrick 1.009 L (1.010-1.025) Urine Protein Trace (Neg-Trace) mg/dL Urine Glucose (UA) Normal (Normal) mg/dL Urine Ketones Negative (Negative) mg/dL Urine Blood Trace H (Negative) Urine Nitrite Negative (Negative) Urine Bilirubin Small H (Negative) Urine Urobilinogen Normal (Normal) mg/dL Ur Leukocyte Esterase Negative (Negative) Urine Microscopic RBC 0-3 (0-3) per hpf Urine Microscopic WBC 0-3 (0-3) per hpf Ur Squamous Epith Cells Many H (None-Few) per lpf Urine Bacteria Few (None-Few) per hpf Ur Culture Indicated? YES A (NO) Specimen Rejected Blood Type Antibody Screen - Radiology Data Radiology results reviewed: Yes I reviewed the patient's radiology results. Abdomen/Pelvis CT 11/15/18 07:45 IMPRESSION: Moderate abdominal and pelvic ascites in this patient with recent cholecystectomy. Small amount of fluid at the gallbladder fossa as well. The findings could be reactive, related to fluid overload, or bile leak. Nuclear medicine bile leak study may be helpful for further assessment. Gaseous distention of colon, likely postoperative ileus. Prostatomegaly. Correlate with urologic history. Atherosclerosis, including coronary artery calcification. No significant interval change in right basilar pulmonary nodules as compared to prior. D/ / Thanh Ram MD / Thanh Ram MD Interpreting Provider: Thanh Ram MD Chest X-Ray 11/15/18 08:04 IMPRESSION: Low lung volumes. Mild bilateral infrahilar opacities most likely represent atelectasis. D/ / Uvaldo Fried MD / Uvaldo Fried MD Interpreting Provider: Uvaldo Fried MD - EKG Data EKG attestation: Yes I reviewed and interpreted this EKG.
[2018-11-15 09:13] LABS: INR 1.1; Prothrombin Time 12.2 Seconds (9.4-12.1)
[2018-11-15 09:15] LABS: Activated Partial Thrombo Time 31.2 Seconds (26.0-36.0)
--- NOTE | 2018-11-15 15:39 | IR Procedure Note ---
Date of procedure: 11/15/18 Consent Obtained: Written consent Timeout: Correct patient and procedure verified, Time out performed, Skin prep completed Local anesthetic: Lidocaine 1% Was there an accounts receivable assistant present: No Estimated blood loss (cc): 0 Complications: None; Tolerated procedure well Indications: perihepatic fluid collection Procedure Performed: ct guided drain aplcement Results/Findings (any specimens removed): 120 ml bilious appearing fluid removed Post Procedure Treatment Plan: monitor on floor Specimen: sample sent
--- NOTE | 2018-11-15 16:47 | Electrocardiograph Report ---
[employer] Test Date: 2018-11-15 Pat Name: Cody Davidson Department: EXAM23 Room: Gender: M Wireless Watcher: : 1950 Requested By: Shelby Major Order Number: [id number] Reading MD: Bunny Howard Measurements Intervals Yancey Rate: 94 P: -13 MT: 152 QRS: -5 QRSD: 91 T: 2 QT: 331 QTc: 414 Interpretive Statements Sinus tachycardia Supraventricular bigeminy RSR' in V1 or V2, right VCD or RVH Electronically Signed On 11-15-2018 16:46:22 EDT by uBnny Howard
--- NOTE | 2018-11-15 17:36 | General Surg History&Physical ---
Date of Encounter: 11/15/18 Time of Encounter: 17:33 Assessment and Plan (1) Bile leak, postoperative Current Visit: Yes Status: Acute A CT-guided drain is been placed. We will see if the drainage decreases overnight and his pain is under better control. If so, the patient may be discharged tomorrow. However if he continues to have high output, he may need to have an ERCP and potential stent placement. The assessment and plan as outlined above was discussed with the patient and/or family members who expressed understanding and agreement. All questions were answered. History of Present Illness HPI: Mr. Davidson is a 68 year old male status post cholecystectomy from November 06. He developed abdominal pain 2 days ago. It increased in intensity until he presented to the emergency department this a.m. He underwent evaluation by the emergency department with a CT scan was found to have fluid around his liver. This was consistent and suspicious for while leak. He underwent CT-guided drainage by interventional radiology which confirmed bile within the peritoneum. A drain was placed. Up on interviewing Mr. Davidson he reports his abdominal pain is much improved however he still having discomfort and is concerned about going home as he does live by himself. Past Med Surg Social Fam HX - Past Medical History Medical history: cancer, COPD, GERD, hyperlipidemia, hypertension, kidney stones, myocardial infarction, other Additional medical history: esophageal/stomach cancer Psychiatric history: no psych history - Past Surgical History Surgical History: herniorrhaphy Additional surgical history: HALF OF STOMACH AND ESOPHAGUS REMOVED DUE TO CANCER - Social History Smoking Status: Current every day smoker Smokeless Tobacco Status: No Alcohol use: none Drug use: none Medications and Allergies Carvedilol 3.125 mg PO BID 04/15/17 [History] Lisinopril [Zestril] 20 mg PO QPM 04/15/17 [History] Pantoprazole Sodium 40 mg PO QPM 04/15/17 [History] Simvastatin [Zocor] 40 mg PO HS 04/15/17 [History] Aspirin [Lo-Dose Aspirin EC] 81 mg PO DAILY 05/01/17 [History] Sildenafil Citrate [Revatio] 60 - 100 mg PO DAILY PRN 05/17/17 [History] Ascorbate Calcium [Vitamin C] 500 mg PO DAILY 11/06/18 [History] Cholecalciferol (Vitamin D3) [Dialyvite Vitamin D] 5,000 units PO DAILY 11/06/18 [History] Ferrous Sulfate [High Potency Iron] 27 mg PO QPM 11/06/18 [History] Allergy/AdvReac Type Severity Reaction Status Date / Time Penicillins [PCN] AdvReac See Verified 11/15/18 07:28 Comments Review of Systems All systems PM: reviewed and no additional remarkable complaints except as stated All systems PM: The remainder of the systems were reviewed and are negative General Surgery Exam Initial Vital Signs Temp Pulse Resp BP Pulse Ox 97.5 F L 113 18 149/100 93 11/15/18 07:27 11/15/18 07:27 11/15/18 07:27 11/15/18 07:27 11/15/18 07:27 - General physical appearance well nourished, no distress - Eyes PERRL, normal ocular movement - ENT normal nares - Respiratory normal expansion - Cardiovascular Cardiovascular exam: Present: tachycardia - Abdomen Abdomen general surgery: Present: soft, tender Abdominal Tenderness: Present: RUQ - Neurologic Present: CN 2-12 grossly intact, normal sensation - Psychiatric Psychiatric general surgery: Present: A&Ox3 Results - Labs 11/15/18 07:43 11/15/18 07:43 Abnormal lab results WBC 14.9 K/mcL (4.3-11.1) H 11/15/18 07:43 RBC 5.88 M/mcL (4.19-5.50) H 11/15/18 07:43 Hgb 18.9 g/dL (12.9-16.9) H 11/15/18 07:43 Hct 56.6 % (37.5-50.1) H 11/15/18 07:43 12.7 K/mcL (1.6-8.9) H 11/15/18 07:43 PT 12.2 Seconds (9.4-12.1) H 11/15/18 08:51 Chloride 97 mEq/L (98-107) L 11/15/18 07:43 Glucose 171 mg/dL (70-105) H 11/15/18 07:43 Calcium 12.7 mg/dL (8.6-10.3) H 11/15/18 07:43 1.7 mg/dL (0.3-1.0) H 11/15/18 07:43 0.5 mg/dL (0.0-0.2) H 11/15/18 07:43 B-Natriuretic Peptide 242 pg/mL (Less than 100) H 11/15/18 07:46 3.7 g/dL (2.4-3.5) H 11/15/18 07:43 < 3 Units/L (11-82) L 11/15/18 07:43 Diabetes panel 11/15/18 Range/Units 07:43 Sodium 137 (136-145) mEq/L Potassium 4.5 (3.5-5.1) mEq/L Chloride 97 L (98-107) mEq/L Carbon Dioxide 29 (23-29) mEq/L BUN 16 (8-23) mg/dL Creatinine 1.17 (0.70-1.30) mg/dL Glucose 171 H (70-105) mg/dL Calcium 12.7 H (8.6-10.3) mg/dL AST 27 (13-39) Units/L ALT 52 (7-52) Units/L Alkaline Phosphatase 71 (34-104) Units/L Albumin 4.4 (3.5-5.7) g/dL Calcium panel 11/15/18 Range/Units 07:43 Calcium 12.7 H (8.6-10.3) mg/dL Albumin 4.4 (3.5-5.7) g/dL Pituitary panel 11/15/18 Range/Units 07:43 Sodium 137 (136-145) mEq/L Potassium 4.5 (3.5-5.1) mEq/L Chloride 97 L (98-107) mEq/L Carbon Dioxide 29 (23-29) mEq/L BUN 16 (8-23) mg/dL Creatinine 1.17 (0.70-1.30) mg/dL Glucose 171 H (70-105) mg/dL Calcium 12.7 H (8.6-10.3) mg/dL Adrenal panel 11/15/18 Range/Units 07:43 Sodium 137 (136-145) mEq/L Potassium 4.5 (3.5-5.1) mEq/L Chloride 97 L (98-107) mEq/L Carbon Dioxide 29 (23-29) mEq/L BUN 16 (8-23) mg/dL Creatinine 1.17 (0.70-1.30) mg/dL Glucose 171 H (70-105) mg/dL Calcium 12.7 H (8.6-10.3) mg/dL Total Bilirubin 1.7 H (0.3-1.0) mg/dL AST 27 (13-39) Units/L ALT 52 (7-52) Units/L Alkaline Phosphatase 71 (34-104) Units/L Albumin 4.4 (3.5-5.7) g/dL All other labs normal.
[2018-11-15 17:57] LABS: Bilirubin,Urine Small (Negative); Blood,Urine Trace (Negative); Color,Urine Dark Yellow (Yellow); Glucose,Urine (UA) Normal (Normal); Ketones,Urine Negative (Negative); Leukocyte Esterase,Urine Negative (Negative); Nitrite,Urine Negative (Negative); Protein,Urine Trace mg/dL (Neg-Trace); Specific Gravity,Urine 1.009 (1.010-1.025); Urobilinogen,Urine Normal (Normal)
[2018-11-15 17:59] LABS: RBC,Urine 0-3 per hpf (0-3); Squamous Epithelial Cell,Urine Many per lpf (None-Few); WBC,Urine 0-3 per hpf (0-3)
[2018-11-15 18:00] LABS: Clarity,Urine Hazy (Clear)
[2018-11-15 18:09] LABS: Bacteria,Urine Few per hpf (None-Few)
--- NOTE | 2018-11-15 19:40 | Emergency Department Note ---
START Narrative - START START: Patient was signed out by Dr. Solitario to me at the end of his shift. Patient was not seen considering the patient was admitted and discussed with the operative physician prior to me taking over the patient's care. I was not required to provide any intervention. I will involvement was monitoring here in the department until the admission was completed. Patient was independently managed by Dr. Solitario and Shelby Major throughout the entire treatment course and I only monitored until the admission was completed
[2018-11-15] MEDS ORDERED: OXYCODONE Oral CONC 10 MG/0.5 ML ORAL.SYG SL PRN (20:09)
[2018-11-15] MEDS ORDERED: Ondansetron 4 MG/2 ML VIAL IVP PRN (20:09)
[2018-11-15] MEDS ORDERED: Ketorolac 15 MG/ML VIAL IVP PRN (20:09)
[2018-11-15] MEDS: 0.9 % Sodium Chloride 1,000 ML IVC SCH (20:56)
[2018-11-16] MEDS: 0.9 % Sodium Chloride 1,000 ML IVC SCH (09:44)
[2018-11-16] MEDS ORDERED: Mag Hydrox/Al Hydrox/Simeth 30 ML UDC PO PRN (13:42)
[2018-11-16 14:15] VITALS: BP 124/77
--- NOTE | 2018-11-16 17:52 | Discharge Summary ---
Orders not resulted at time of discharge: Pending orders 11/15/18 15:34 Bilirubin,Total,Body Fluid Stat 11/15/18 17:45 Culture,Urine [RM] Stat Date of Encounter: 11/16/18 Time of Encounter: 17:54 - Discharge Diagnosis (1) Bile leak, postoperative Priority: Primary Status: Resolved General Surgery Exam Initial Vital Signs Temp Pulse Resp BP Pulse Ox 97.5 F L 113 18 149/100 93 11/15/18 07:27 11/15/18 07:27 11/15/18 07:27 11/15/18 07:27 11/15/18 07:27 - General physical appearance well developed, well nourished, no distress - Eyes normal ocular movement - ENT normal mucosa, atraumatic, normocephalic - Neck trachea midline - Respiratory normal respiratory effort - Cardiovascular Cardiovascular exam: Present: RRR - Abdomen Abdomen general surgery: Present: bowel sounds present, soft, tender (Expected tenderness), wound (Pigtail drain with bilious drainage noted) - Integumentary Integumentary general surgery: Present: warm and dry - Neurologic Present: CN 2-12 grossly intact - Psychiatric Psychiatric general surgery: Present: A&Ox3 - Hospital Course Hospital course: Mr. Davidson is a 68 year old male who is status post a cholecystectomy with Dr. Marks. He experienced a postoperative bile leak. He was admitted to the hospital and had a drain placed per interventional radiology. After drain placement, the patient's symptoms have significantly improved. He is tolerating a regular diet without nausea or vomiting. His vital signs are stable and he is afebrile. We will complete drain teaching and begin discharge planning. Patient will follow-up in the office next week for evaluation. He was advised to call the office with any questions or concerns prior to his follow-up appointment. - Time Spent with Patient Total time spent providing and/or coordinating discharge services: Less than 30 minutes - Discharge Medications Prescriptions: Continued Lisinopril [Zestril] 20 mg PO QPM Carvedilol 3.125 mg PO BID Simvastatin [Zocor] 40 mg PO QPM Pantoprazole Sodium 40 mg PO QPM Aspirin [Lo-Dose Aspirin EC] 81 mg PO QPM Sildenafil Citrate [Revatio] 60 - 100 mg PO DAILY PRN PRN Reason: Erectile Dysfunction Ascorbate Calcium [Vitamin C] 500 mg PO QPM Cholecalciferol (Vitamin D3) [Dialyvite Vitamin D] 5,000 units PO QPM Ferrous Sulfate [High Potency Iron] 27 mg PO QPM Home Medications: Carvedilol 3.125 mg PO BID 04/15/17 [History] Lisinopril [Zestril] 20 mg PO QPM 04/15/17 [History] Pantoprazole Sodium 40 mg PO QPM 04/15/17 [History] Simvastatin [Zocor] 40 mg PO QPM 04/15/17 [History] Aspirin [Lo-Dose Aspirin EC] 81 mg PO QPM 05/01/17 [History] Sildenafil Citrate [Revatio] 60 - 100 mg PO DAILY PRN 05/17/17 [History] Ascorbate Calcium [Vitamin C] 500 mg PO QPM 11/06/18 [History] Cholecalciferol (Vitamin D3) [Dialyvite Vitamin D] 5,000 units PO QPM 11/06/18 [History] Ferrous Sulfate [High Potency Iron] 27 mg PO QPM 11/06/18 [History] Allergies/Adverse Reactions: Allergy/AdvReac Type Severity Reaction Status Date / Time Penicillins [PCN] AdvReac See Verified 11/16/18 13:04 Comments Date of admission: 11/15/18 20:06 Primary care physician: Tomas Kumar DO Consults: 11/15/18 11:04 Consult to Interventional Radiology [CONS] Stat Consulting Provider: Radiology Interventional Cols Reason for Consult: Drain Placement Time Notified: 11:04 Call Completed: Yes 11/15/18 21:19 Consult to Nutrition [CONS] Routine Comment: Consulting Provider: NUTRITION Reason for Dietary Consult: MST Score Discharging clinician: Segundo Marks Anticipated date of discharge: 11/16/18 Labs on day of discharge: Labs from last 24 hours 11/15/18 17:45 Urine Color Dark Yellow Urine Clarity Hazy Urine pH 6.0 Ur Specific [place] 1.009 L Urine Protein Trace Urine Glucose (UA) Normal Urine Ketones Negative Urine Blood Trace H Urine Nitrite Negative Urine Bilirubin Small H Urine Urobilinogen Normal Ur Leukocyte Esterase Negative Urine Microscopic RBC 0-3 Urine Microscopic WBC 0-3 Ur Squamous Epith Cells Many H Urine Bacteria Few Ur Culture Indicated? YES A Preliminary micro results at discharge 11/15/18 17:45 Urine Culture - Preliminary Urine,Clean Catch Culture is incubating. - Impressions ITS Impressions Needle Aspiration CT 11/15/18 00:00 IMPRESSION: 1. CT guided drainage of perihepatic fluid collection as discussed above. D/ / Suresh Prince MD / Suresh Prince MD Interpreting Provider: Suresh Prince MD Abdomen/Pelvis CT 11/15/18 07:45 IMPRESSION: Moderate abdominal and pelvic ascites in this patient with recent cholecystectomy. Small amount of fluid at the gallbladder fossa as well. The findings could be reactive, related to fluid overload, or bile leak. Nuclear medicine bile leak study may be helpful for further assessment. Gaseous distention of colon, likely postoperative ileus. Prostatomegaly. Correlate with urologic history. Atherosclerosis, including coronary artery calcification. No significant interval change in right basilar pulmonary nodules as compared to prior. D/ / Thanh Ram MD / Thanh Ram MD Interpreting Provider: Thanh Ram MD Chest X-Ray 11/15/18 08:04 IMPRESSION: Low lung volumes. Mild bilateral infrahilar opacities most likely represent atelectasis. D/ / Uvaldo Fried MD / Uvaldo Fried MD Interpreting Provider: Uvaldo Fried MD - Patient Status Disposition: Home, Self-Care Condition: Good Functional capacity at discharge: independent ambulation Overall status at discharge: patient is progressing back to baseline - Discharge Instructions Follow Up With: Tomas Kumar DO [Primary Care Provider] - Susana Villavicencio CNP [Advanced Practice Nurse] - 11/19/18 Additional Instructions: General Surgical Discharge Instructions 1. No pushing, pulling, or lifting greater than 15 lbs for 4 weeks 2. You may shower beginning today, but no tub baths, soaking, or swimming for 2 weeks. 3. You may resume driving when you are off narcotics and are safe to react in a car. 4. Take ibuprofen every 8 hours for discomfort. If this does not relieve discomfort, you may take the as needed Percocet. Take narcotics as directed. Do not take more narcotics then directed and do not share your narcotics with any other person. Do not drink alcohol while on narcotics. 5. Take stool softeners (Colace) or a water based laxative (Miralax) while taking narcotics. You may hold for loose stools. 6. Report any fevers greater than 100.5F, increase abdominal discomfort, drainage that looks like pus, increased redness or pain at the surgical site, or any vomiting. 7. Report any pain in the calves, shortness of breath, or rapid heartbeat. 8. Follow-up in the office as directed. Pigtail drain- empty drain 3 times a day and as needed and full. Record output on drain record and bring to follow-up appointment next Sunday. - Diet and Activity Activity: other (See additional instructions above) Diet: regular diet - Attending Attestation For this encounter, I have reviewed the INSPECTOR [employer] DISPOSITION or PA documentation, treatment plan, and medical decision making; and I have had face to face time with this patient.
[2018-11-17 08:01] LABS: Fluid Source for Bilirubin ABDOMEN
== END 2018-11-16 19:10 | disposition home or self-care (01) ==
LOC: EMEROOARM 07:23 → 3ANU 07:23
PROVIDERS: ADMIT Surgery; ATTEND Surgery
PROC: IRDRAIN (2018-11-15 13:00)